=== PATIENT | female | born 1955 | race Caucasian/White ===

== ENCOUNTER 2021-09-17 09:43 | Outpatient (CLI) | payer MEDICARE | END 2021-09-17 09:44 | disposition home or self-care (01) | LOC: CSHMAMMO 09:43 | PROVIDERS: ATTEND Obstetrics & Gynecology | DX: Z12.31 Encounter for screening mammogram for malignant neoplasm of breast (principal) | CPT/HCPCS: 77063; 77067 ==

== ENCOUNTER 2025-05-24 13:27 | Outpatient (CLI) | payer MEDICARE | END 2025-05-24 13:28 | disposition home or self-care (01) | LOC: CSHMAMMO 13:27 | PROVIDERS: ATTEND Nurse Practitioner Family | DX: Z12.31 Encounter for screening mammogram for malignant neoplasm of breast (principal) | CPT/HCPCS: 77063; 77067 ==